=== PATIENT | female | born 1970 | race Caucasian/White ===

== ENCOUNTER 2019-07-06 17:24 | Emergency (ER) | payer MEDICAID, SELFPAY ==
[2019-07-06] VITALS (7 sets, daily range): BP systolic 95–139; BP diastolic 57–88; PULSE 70–82; RESP 18–20; TEMP 36.3; O2SAT 96–97; BMI 58.4
--- NOTE | 2019-07-06 17:42 | ED.DCSUM_ITS ---
History of Present Illness Chief Complaint: Suicidal Informant: Patient, - - Onset: Days Context: Sudden Onset Conflict: - - Foster father February 2017 and of 17 years June 23, 2017. Fled from mother's residents who has custody to be with her sister in [place]. She states when she is with her mom she has no suicidal thoughts or thoughts of cutting herself. Timing: - - Certain Current Severity: Mild - Anniversary of 's and lack of supervision Maximum Severity: Severe Worsened by: Situational factors, - - Anniversary of 's and lack of supervision Relieved by: Mother's guidance Associated Symptoms: Depressed, Suicidal Thoughts. Negative for: Decreased Interest, Guilt, Grandiosity, Flight of Ideas, Agitated, Angry, Hostile, Threatening, Confusion, Visual Hallucinations, Auditory Hallucinations Specific plan (suicidal thought): Vein and forearm or take pills Narrative: Patient is a middle-age woman who is cognitively impaired and resides with mother who has custody. She fled from mother's residence to visit sister in [place]. She has suicidal thoughts when she was not with her mother. The only she reports being sad because of the of her . She was for 17 years. She has been hospitalized multiple times. Prior similar symptoms: Yes Recent Illness/Hospitalization: Yes - Past Medical History (1) Depression Status: Acute (2) Self-harm Status: Acute Past Medical History - Allergies and Home Meds Allergies/Adverse Reactions: Allergies codeine Allergy (Verified 07/06/19 18:16) Anaphylaxis erythromycin base Allergy (Verified 07/06/19 18:16) Anaphylaxis ibuprofen Allergy (Verified 07/06/19 18:16) Anaphylaxis Penicillins [PCN] Allergy (Verified 07/06/19 18:16) Anaphylaxis Primary Care Physician: [facility] Doctor,Out of [NON-STAFF] - Prior records reviewed: Yes Lives: With Family Smoking Status: Never smoker Review of Systems General: Denies: Chills, Fever, Malaise, Subjective, Sweats, Weight loss Eyes: Denies: Visual changes - bilaterally, Blurred Vision - bilaterally, Diplopia ENT: Denies: Rhinorrhea, Sore throat Cardiovascular: Denies: Chest pain, Palpitations Respiratory: Denies: Dyspnea, Cough, Dyspnea on exertion Gastrointestinal: Denies: Abdominal pain, Nausea, Vomiting, Diarrhea, Melena, Hematochezia Genitourinary: Denies: Dysuria, Hematuria, Frequency Musculoskeletal: Denies: Back pain, Extremity Pain Skin: Denies: Rash, Wounds Neurological: Denies: Headache, Weakness, Numbness Psych: Reports: Depression, Suicidal thoughts Hematologic: Denies: Easy bruising, Easy bleeding Allergy: Denies: Uticaria, Swelling of the mouth, Swelling of the tongue Physical Exam Vital Signs/Narrative: Vital Signs Temp Pulse Resp BP Pulse Ox 07/06/19 17:25 97.4 F L 81 18 136/88 H 97 Inital Vital Signs reviewed: Yes General: Well nourished, Well developed, Obese Head: Normocephalic, Atraumatic Eyes: Perrl, EOMI ENT: Moist mucous membranes, No rhinorrhea Neck: Supple, Nontender Cardiovascular: Regular rate, Regular rhythm, No murmurs Respiratory: No distress, CTA bilaterally, Chest nontender Abdomen: Soft, Nontender, Nondistended, Normal bowel sounds Back: Nontender, Normal Inspection Extremities: Nontender, No Edema Skin: Normal color, No rash Neurological: Alert, Oriented x3, Cranial nerves II-XII grossly intact, Normal Strength, Normal Sensation Psych: Normal Stable Appropriate Affect, Normal Appearance, Suicidal thoughts, - - She is cognitively impaired.. Negative for: Normal Speech Pattern, Logical sequential goal directed thoughts, Irritable, Euphoric, Blunted Affect, Flat Affect, Restricted Affect, Pressured Speech, Poverty of Speech, Flight of Ideas, Incoherent thoughts, Homicidal thoughts, Hallucinations, Delusions, Paranoid Ideation Diagnostic/Tx/Re-eval Laboratory Results 07/06/19 07/06/19 07/06/19 18:15 18:15 18:15 WBC 8.1 RBC 4.73 Hgb 14.2 Hct 43.6 MCV 92.2 MCH 30.0 MCHC 32.6 RDW Std Deviation 42.6 RDW Coeff of Yevgeniy 12.6 Plt Count 287 MPV 9.7 Immature Gran % (Auto) 0.500 Neut % (Auto) 65.1 Lymph % (Auto) 25.0 [place] % (Auto) 6.4 Eos % (Auto) 2.6 Baso % (Auto) 0.4 Absolute Neuts (auto) 5.3 Absolute Lymphs (auto) 2.02 Nucleated RBC % 0 Sodium 142 Potassium 3.7 Chloride 109 H Carbon Dioxide 27.0 Anion Gap 6 BUN 17 Creatinine 1.09 H Estim Creat Clear Calc 55.56 Est GFR (MDRD) Af Amer 68 Est GFR (MDRD) Non-Af 56 L BUN/Creatinine Ratio 15.6 Glucose 98 Calcium 9.0 Serum , Qual Urine Opiates Screen Urine Methadone Screen Ur Barbiturates Screen Ur Phencyclidine Scrn Ur Amphetamines Screen U Methamphetamin-MDMA U Benzodiazepines Scrn Urine Cocaine Screen U Cannabinoids Screen Ur Drug Screen Comment Ethyl Alcohol 6.0 07/06/19 07/06/19 18:15 19:50 WBC RBC Hgb Hct MCV MCH MCHC RDW Std Deviation RDW Coeff of Yevgeniy Plt Count MPV Immature Gran % (Auto) Neut % (Auto) Lymph % (Auto) [place] % (Auto) Eos % (Auto) Baso % (Auto) Absolute Neuts (auto) Absolute Lymphs (auto) Nucleated RBC % Sodium Potassium Chloride Carbon Dioxide Anion Gap BUN Creatinine Estim Creat Clear Calc Est GFR (MDRD) Af Amer Est GFR (MDRD) Non-Af BUN/Creatinine Ratio Glucose Calcium Serum , Qual NEGATIVE Urine Opiates Screen NEGATIVE Urine Methadone Screen NEGATIVE Ur Barbiturates Screen NEGATIVE Ur Phencyclidine Scrn NEGATIVE Ur Amphetamines Screen NEGATIVE U Methamphetamin-MDMA NEGATIVE U Benzodiazepines Scrn NEGATIVE Urine Cocaine Screen NEGATIVE U Cannabinoids Screen NEGATIVE Ur Drug Screen Comment Ethyl Alcohol This management was consulted to verify that she does reside with her mother and mother has custody. Also to determine if what she told me regarding mother having control of her medication and ability to control her. If this is factual in my opinion, patient can be discharged to home with safety plan if mother is agreeable. Informed by case management that patient states she will continue to have suicidal thoughts until she acts on them. This is new information that I was able to obtained. In light of this new information suicide precautions was ordered and appropriate testing to facilitate disposition to psychiatric facility. No metabolic, infectious or neurologic causes for patient's behavior. In my professional medical opinion patient is appropriate for transfer to psychiatric facility to receive appropriate care for her presentation. ED Disposition - Plan for ED Patient: Disposition: Acute Care Hospital - Other Diagnosis: Depression with suicidal ideation Referrals: [facility] Doctor,Out of [NON-STAFF] -
--- NOTE | 2019-07-06 18:05 | ED.RN ---
SITTER PLACED IN THE ROOM PER [facility] M[employer]UM SPECIALIST
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
[2019-07-06 18:28] LABS: Absolute Lymphocyte Count 2.02 X10^3/uL (0.83-4.51); Absolute Neutrophil Count 5.3 X10^3/uL (2.0-7.7); Basophil# 0.03 X10^3/uL; Basophil% 0.4 % (0-1); Eosinophil# 0.21 X10^3/uL; Eosinophils% 2.6 % (0-5); Hematocrit 43.6 % (37-47); Hemoglobin 14.2 g/dL (12.0-15.0); Lymphocyte # 2.02 X10^3/ul (4.0); Mean Corp Hgb Conc 32.6 g/dL (32-36); Mean Corpuscular Volume 92.2 fL (81-99); Mean Platelet Vol. 9.7 fl (6.2-12.0); Monocyte# 0.52 X10^3/uL; Monocyte% 6.4 % (0-10); NRBC Flagged by Analyzer 0 % (0-5); Neutrophil # 5.26 X10^3/uL (2.7-7.7); Neutrophil % 65.1 % (47-70); Platelet Count 287 K/mm3 (150-450); RBC Distribution Width CV 12.6 % (11.6-14.6); RBC Distribution Width SD 42.6 fl (35.1-43.9); Red Blood Count 4.73 M/mm3 (4.2-5.4); White Blood Count 8.1 K/mm3 (4.4-11.0)
[2019-07-06 18:46] LABS: Anion Gap 6 (5-15); BUN 17 mg/dL (7-18); BUN/Creat Ratio 15.6 RATIO (10-20); Chloride 109 mmol/L (98-107); Creatinine, Serum 1.09 mg/dL (0.55-1.02); EST Glomerular Filtration Rate 56 mL/min (>60); Est Glom Filt Rate - Afr Amer 68 mL/min (>60); Estimated Creatinine Clearance 55.56 ml/min; Glucose 98 mg/dL (74-106); Potassium 3.7 mmol/L (3.5-5.1); Sodium Level 142 mmol/L (136-145)
[2019-07-06 18:47] LABS: Internal QC Validated? YES +Cl - CLEAR BKGD; Pregnancy, Serum, hCG Quali. NEGATIVE Negative
--- NOTE | 2019-07-06 19:45 | CM.ED ---
Social Work Referral faxed to [facility], pending approval. Grover Doherty MSW, CORNELIA
--- NOTE | 2019-07-06 20:10 | CM.ED ---
Social Work Telephone call received from [facility]. Patient has been accepted. N:N report: [phone]. Admitting Doctor: Dr. Rodrigues. Patient to admit to [address]. Notified patient, nursing staff and Dr. Fitzpatrick of above information. [employer] faxed to [facility]. Grover Doherty MSW, CORNELIA
[2019-07-06 20:44] LABS: Amphetamine Urine VISTA NEGATIVE (<1000 ng/mL); Barbiturate Urine VISTA NEGATIVE (< 200 ng/mL); Benzodiazepine Urine VISTA NEGATIVE (< 200 ng/mL); Cocaine Urine VISTA NEGATIVE (< 300 ng/mL); Ecstacy Urine VISTA NEGATIVE (< 500 ng/mL); Methadone Urine VISTA NEGATIVE (< 300 ng/mL); PCP Urine VISTA NEGATIVE (< 25 ng/mL); THC Urine VISTA NEGATIVE (< 50 ng/mL); Vista UDS pH Range 5
--- NOTE | 2019-07-06 21:41 | NURSING ---
CALLED [facility] AND WAS INFORMED BY BOTH THAT THEY HAD NOT AVAILABILITY TILL TOMORROW
[2019-07-06] MEDS: Divalproex (ER) 500 MG Tablet PO (23:47)
[2019-07-06] MEDS: Atorvastatin Calcium 40 MG Tablet PO (23:47)
[2019-07-06] MEDS: Gabapentin 800 MG Tablet PO (23:47)
[2019-07-06] MEDS: Mirtazapine 15 MG Tablet PO (23:47)
[2019-07-07] VITALS (7 sets, daily range): BP systolic 117–139; BP diastolic 65–76; PULSE 68–71; RESP 14–17; O2SAT 96–100
--- NOTE | 2019-07-07 06:33 | ED.RN ---
CALLED AND UPDATED PTS MOM.
== END 2019-07-07 06:02 | disposition short-term general hospital (02) ==
PROVIDERS: Emergency Provider Emergency Medicine
DX: F32.9 Major depressive disorder, single episode, unspecified (principal); R45.851 Suicidal ideations; Z88.1 Allergy status to other antibiotic agents; Z88.0 Allergy status to penicillin; Z79.899 Other long term (current) drug therapy
CPT/HCPCS: 80048; 80307; 80320; 84703; 85025; 99285; G0480